=== PATIENT | male | born 1975 | race Caucasian/White ===

== ENCOUNTER 2023-12-08 11:55 | Observation (INO) | payer OTHER, SELFPAY ==
[2023-12-08] VITALS (7 sets, daily range): BP systolic 142–173; BP diastolic 83–94; PULSE 100–118; RESP 15–20; TEMP 36.6; O2SAT 95–100; BMI 28.7
--- NOTE | ~2023-12-08 | XR_ITS ---
XR foot RT min 3V Ordering provider: Neema Godinez MD History: . Diabetic foot . Comparison: None. FINDINGS: BONES: No acute fracture or dislocation. Slight sclerotic changes seen in the proximal navicular bone and medial cuneiform bone may be osteoarthritic. Follow-up advised. JOINT SPACES: Normal. No tarsal coalition. SOFT TISSUES: Normal. IMPRESSION: No acute osseous abnormality of the right foot. Slight sclerotic changes seen in the proximal navicular bone and medial cuneiform bone may be osteoar thritic. Follow-up advised. Reviewed, dictated and finalized at location A. IMPRESSION: No acute osseous abnormality of the right foot. Slight sclerotic changes seen in the proximal navicular bone and medial cuneifo rm bone may be osteoarthritic. Follow-up advised.
--- NOTE | ~2023-12-08 | XR_ITS ---
EXAMINATION: XR chest 1V portable DATE: 12/08/2023 15:04 INDICATION: Diabetic ketoacidosis TECHNIQUE: frontal view of the chest was obtained. COMPARISON: None FINDINGS: Mild elevation of the right hemidiaphragm. No airspace opacities, pulmonary edema, pleural effusion o r pneumothorax. The cardiomediastinal silhouette is normal. Visualized bones and soft tissues are unr emarkable. IMPRESSION: 1. Mild elevation the right hemidiaphragm. No other acute cardiopulmonary disease. Reviewed, dictated and finalized at location A. IMPRESSION: 1. Mild elevation the right hemidiaphragm. No other acute cardiopulmonary disea se.
--- NOTE | 2023-12-08 12:16 | ECG_ITS ---
Test Date: 2023-12-08 12:37:47 Measurements Intervals [place] Rate: 112 P: 45 ND: 176 QRS: -12 QRSD: 87 T: 40 QT: 323 QTc: 442 Interpretive Statements SINUS TACHYCARDIA POSSIBLE LEFT ATRIAL ENLARGEMENT [-0.1mV P-WAVE IN V1/V2] POSSIBLE ANTERIOR MYOCARDIAL INFARCTION , OF INDETERMINATE AGE [30 ms Q WAVE IN V3/V4, OR R < 0.2 mV IN V4] ABNORMAL ECG No previous ECG available for comparison Electronically Signed On 12-08-2023 16:08:52 CDT by Edward Lentz M.D.
[2023-12-08 12:56] LABS: Basophils Absolute Auto 0.1 K/mm3 (0.0-0.1); Basophils Percent Auto 0.8 % (0.2-1.2); Eosinophils Absolute Auto 0.1 K/mm3 (0-0.3); Eosinophils Percent Auto 1.2 % (0-4.4); Hemoglobin 14.6 g/dL (14.0-18.0); Immature Granulocyte Absolute 0.05 K/mm3 (0.00-0.031); Immature Granulocyte Percent A 0.5 % (0-0.5); Lymphocytes Percent Auto 15.1 % (18.3-44.2); Mean Corpuscular HGB Conc 34.8 g/dl (32-36); Mean Corpuscular Volume 80.5 fl (80-100); Mean Platelet Volume 8.9 fl (7.4-10.4); Monocytes Absolute Auto 0.8 K/mm3 (0.1-0.6); Monocytes Percent Auto 8.2 % (2.6-8.5); Neutrophils Absolute Auto 6.9 K/mm3 (1.3-6.7); Neutrophils Percent Auto 74.2 % (45.5-73.1); Platelet Count Result 215 k/mm3 (150-375); Red Blood Count 5.22 M/mm3 (4.6-6.20); Red Cell Distribution Width 12.4 % (11.5-14.5); White Blood Count 9.3 K/mm3 (4.5-10.0)
[2023-12-08 13:03] LABS: INR 0.9; Prothrombin Time 12.9 Seconds (11.1-14.7)
[2023-12-08 13:04] LABS: Partial Thromboplastin Time 26.4 Seconds (22.3-36.8)
[2023-12-08 13:08] LABS: Alanine Aminotransferase 28 U/L (6-50); Albumin Level 4.4 g/dL (3.5-5.1); Alkaline Phosphatase 123 U/L (38-126); Anion Gap 11 mmol/L (4-12); Aspartate Amino Transferase 24 U/L (17-59); Blood Urea Nitrogen 20 mg/dL (9-20); Calcium 9.4 mg/dL (8.4-10.2); Carbon Dioxide 27 mmol/L (22-30); Chloride 95 mmol/L (98-107); Estimated CRCL calculation 140 ml/min; Estimated Glomerular Filt Rate > 60; Glucose 528 mg/dL (65-110); Potassium 4.6 mmol/L (3.4-5.0); Sodium 133 mmol/L (137-145)
[2023-12-08 13:56] LABS: Alveolar/Arterial O2 Gradient 24.3 mmHg; Base Excess ABG 3.5 mEq/l (+/-2.0); Fractional Inspired Oxygen 21 %; HCO3 ABG 27.8 mEq/l (22.0-26.0); Oxygen Content ABG 19.9 %vol (16.0-22.0); Oxygen Saturation ABG 95.7 % (95.0-100.0); Oxyhemoglobin 94.7 % THb (90.0-100.0); PCO2 ABG 41.2 mmHg (35.0-45.0); PO2 ABG 76.1 mmHg (80.0-100.0); PO2 FiO2 Ratio Arterial Blood 3.62 %; Total Hemoglobin 14.9 g/dL (12.0-18.0)
[2023-12-08 13:57] LABS: Modified Allen's Test Pass; Site Drawn RIGHT RADIAL; pH ABG 7.447 (7.350-7.450)
[2023-12-08] MEDS: INSULIN HUMAN REGULAR (*BKC) 100 UNITS/ML 14 UNITS IV PUSH (14:19)
[2023-12-08] MEDS: SODIUM CHLORIDE 0.9% IV 1,000 ML 999 ML IV CONT ×2 (14:19→16:32)
[2023-12-08 14:54] LABS: Appearance Urine Clear (Clear); Bacteria Urine None Seen /hpf; Bilirubin Urine Negative (Negative); Blood Urine Non-Hemolyzed Trace (Negative); Color Urine Yellow (Yellow); Glucose Urine UA 3+ mg/dL (Negative); Ketones Urine 1+ mg/dL (Negative); Leukocyte Esterase Ur Negative LEU/UL (Negative); Nitrate Urine Negative (Negative); Non Pathogenic Casts 0-2; Protein Urine Trace mg/dL (Negative); Squamous Epithelial Cell Urine None Seen /hpf (Few); Urobilinogen Urine 0.2 mg/dL (<2.0); WBC Urine 0-5 /hpf (0-3); pH Urine 6.5 (5.0-9.0)
[2023-12-08 14:57] LABS: Add Urine Microscopic? YES; Specific Grav Ur 1.035 (1.001-1.035)
[2023-12-08 15:37] LABS: Magnesium 1.8 mg/dL (1.6-2.3); Phosphorus 4.2 mg/dL (2.5-4.5)
--- NOTE | 2023-12-08 15:38 | ED.GENADULT ---
HPI - General Adult General Chief complaint: Wound/Laceration Stated complaint: R foot wound between 1st 2 toes Time Seen by Provider: 12/08/23 13:09 Source: patient and family Mode of arrival: ambulatory Limitations: no limitations History of Present Illness HPI narrative: 48 years old white male came to the ED by private car complaining of pain at the right foot started 5 days ago. Patient accidentally hit the leg of a table 10 days ago causing laceration between the 1st and 2nd toe. History of diabetes, stopped diabetic medication 2 years ago for no specific reason. Patient does not take any medicine at home except ibuprofen as needed, does not smoke or drink. Related Data Allergies Allergy/AdvReac Type Severity Reaction Status Date / Time No Known Allergies Allergy Verified 12/08/23 11:56 Review of Systems Review of Systems: All systems reviewed & are unremarkable except as noted in HPI and below Exam Narrative: General appearance: Well-developed, well-nourished Skin: Normal color Head: Normocephalic, nontraumatic Eyes: Clear conjunctiva ENT: Oropharynx normal, ears normal, nose normal Neck: Supple, nontender Chest and respiratory: Airway patent, no respiratory distress, no accessory muscle use Heart: Regular rate/rhythm Abdomen: Soft, nontender, no organomegaly, quiet bowel sounds Vascular: Normal peripheral pulses, normal capillary refill. 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 CARLOS Date: 12/08/23 Time: 17:04 Vital Signs Vital signs: Vital Signs Temperature 36.6 C 12/08/23 12:08 Pulse Rate 118 H 12/08/23 12:08 Respiratory Rate 18 12/08/23 12:08 Pulse Oximetry 100 12/08/23 12:08 Oxygen Delivery Room Air 12/08/23 12:08 Temperature 36.6 C 12/08/23 12:08 Pulse Rate 109 H 12/08/23 14:12 Respiratory Rate 15 12/08/23 14:12 Blood Pressure 173/94 H 12/08/23 14:12 Pulse Oximetry 97 12/08/23 14:12 Oxygen Delivery Room Air 12/08/23 12:08 Medical Decision Making [facility] Narrative Medical decision making narrative: Patient presents with pain and swelling and laceration between the 1st and 2nd right toes started few days ago, patient is diabetic, does not take medication for the last 2 years for no specific reason. My concern that the patient have diabetic foot Labs, x-ray of the right foot, septic protocol, ordered. Differential Diagnosis Differential Diagnosis: Diabetic foot, cellulitis, sepsis Medical Records Medical records reviewed: Yes I reviewed the external patient's medical records. Vital Signs Vital Signs: Vital Signs Temperature 36.6 C 12/08/23 12:08 Pulse Rate 118 H 12/08/23 12:08 Respiratory Rate 18 12/08/23 12:08 Pulse Oximetry 100 12/08/23 12:08 Oxygen Delivery Room Air 12/08/23 12:08 Temperature 36.6 C 12/08/23 12:08 Pulse Rate 109 H 12/08/23 14:12 Respiratory Rate 15 12/08/23 14:12 Blood Pressure 173/94 H 12/08/23 14:12 Pulse Oximetry 97 12/08/23 14:12 Oxygen Delivery Room Air 12/08/23 12:08 Lab Data 12/08/23 12:49 12/08/23 12:49 Labs: Lab Results 12/08/23 12/08/23 12/08/23 Range/Units 12:49 14:19 15:19 WBC 9.3 (4.5-10.0) K/mm3 RBC 5.22 (4.6-6.20) M/mm3 Hgb 14.6 (14.0-18.0) g/dL Hct 42.0 (42.0-52.0) % MCV 80.5 (80-100) fl MCH 28.0 (26-34) pg MCHC 34.8 (32-36) g/dl RDW 12.4 (11.5-14.5) % Plt Count 215 (150-
[2023-12-08 15:58] LABS: Glucose Point of Care 377 mg/dl (65-105)
[2023-12-08 16:03] LABS: Beta-Hydroxybutyrate/Acetoacetate 0.83 mmol/L (0.02-0.27)
--- NOTE | 2023-12-08 16:57 | PM.IMHP ---
H&P: HPI History of Present Illness Date/Time: 12/08/23 16:57 Chief Complaint: Foot Wound Narrative: 48 y/o M presents here with hyperglycemia and a foot wound with PMH of DM2. The patient presents here from home for further evaluation of a wound to his right foot. First injured foot 10 days ago while he was walking he accidentally hit his foot into the leg of his bed while he was up in the middle of the night to use the restroom. Did not notice that there was an open wound to that area until 5 days ago. Wound initially appeared as a split between his 1st and 2nd toe. Once he noticed the wound he began icing the area, iodine solution on a cotton ball, Silvex cream, and soaking the wound in chlorhexidine/Epsom salt. Then developed erythema, pain, and drainage 2-3 days ago. Pain significantly worsened in the last 24 hrs. Currently reporting pain to affected area which he describes as sharp and deep. Pain is partially relieved with ibuprofen and worsens with ambulation. Patient has hx of DM2. Patient has been noncompliant with his DM medications for 2 years. States that he stopped taking his medications due to running out of the refills. Does not follow regularly with a PCP, last visit was 2 years ago. 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 Currently trying to get reestablished with a PCP. Initial VS at presentation: 97.8? F, HR 118, RR 18, 173/94, and 100% on RA. ED workup showed: No leukocytosis, no anemia, no acidosis, sodium 133, creatinine 0.6 and GFR >60, initial glucose 528, beta hydroxy 0.83, 1+ ketones in the urine. Review of Systems Review of Systems: All systems reviewed & are unremarkable except as noted in HPI and below COUNT INCLUDES THE [facility] Past Medical History Medical History Diabetes Social History Social History Smoking status: Never smoker Second hand tobacco smoke exposure: No Alcohol intake: never Substance use: never Substance use type: does not use Spiritual care concerns: No Meds Home Medications and Allergies Allergies Allergy/AdvReac Type Severity Reaction Status Date / Time No Known Allergies Allergy Verified 12/08/23 11:56 Vital Signs Vital Signs - 24 hr 12/08/23 12:08 12/08/23 14:12 Temperature 97.8 F Pulse Rate 118 H 109 H Respiratory Rate 18 15 Blood Pressure 173/94 H Pulse Oximetry 100 97 Oxygen Delivery Room Air Exam Const: General: comfortable and no acute distress Other: , male, nontoxic appearance HENMT: Face/Nose/Sinus: Normal nares present Mouth: Yes moist mucous membranes Eyes: General: appearance normal, both eyes and all related structures Sclera: sclerae normal Pupils: Equal, round and reactive pupils present EOM: EOMs intact bilaterally Resp: Effort & Inspection: normal respiratory effort Auscultation: clear to auscultation bilaterally Cardio: Rate: regular rate Rhythm: regular rhythm Other: S1-S2 present without murmur, rub, ectopy Skin: General skin exam: normal color and no rashes or lesions noted Wounds: wounds noted Other: gummy yellow/white wound with dry eschar center between 1st and 2nd toe with erythema to plantar and dorsal aspect to foot. Neuro: General: gait normal Speech: normal speech Motor exam (neuro): 5/5 motor strength present throughout Sensory Exam: normal sensation Other: A&O x4 Extrem: General: normal exam except as noted ( see skin exam) Psych: Mental Status: mental status grossly normal Affect: normal affect Other: good insight judgment, pleasant H&P: Results Labs Labs: Short CBC 12/08/23 Range/Units 12:49 WBC 9.3 (4.5-10.0) K/mm3 Hgb 14.6 (14.0-18.0) g/dL Hct 42.0 (42.0-52.0) % Plt Count 215 (150-375) k/mm3 [facility] 12/08/23 12:49 Sodium 133 L Potassium
[2023-12-08 17:14] LABS: Lactic Acid Reflex 1.1 mmol/L (0.7-2.0)
[2023-12-08 17:17] LABS: CRP 0.9 mg/dL (<1.0)
--- NOTE | 2023-12-08 17:23 | PM.CNGS ---
Assessment and Plan Assessment and plan (1) Hyperglycemia due to diabetes mellitus: Code(s): E11.65 - Type 2 diabetes mellitus with hyperglycemia Status: Acute Assessment and Plan: Admitted and diabetic treatment will be given per hospitalist service (2) Diabetic foot infection: Code(s): E11.628 - Type 2 diabetes mellitus with other skin complications; L08.9 - Local infection of the skin and subcutaneous tissue, unspecified Status: Acute Assessment and Plan: Mild cellulitis distal right forefoot adjacent to wound in 1st and 2nd toe web space. This wound has granulating periphery but a soft dry eschar in the center that is very adherent. Recommend IV antibiotics. I will also start collagenase dressing changes to the open wound in the 1st web space. Do not feel patient will need any debridement and will be fine to go home once diabetic management is established and improved. History of Present Illness Consult details Consult date: 12/08/23 Reason for consult: wound care Requesting physician: Neema Godinez MD Narrative: Patient is a 48-year-old man with diabetes who, 2 weeks ago, was going get to bed in the middle of the night and struck his great toe on the foot of his bed. He has sensation in his feet and this was of course painful. It improved but a low degree of pain persisted. Yesterday, this pain worsened significantly and was still painful today. He came to the emergency room due to this pain and also a wound in the webspace between the 1st and 2nd toes. He did not notice any fever or chills. He stopped medical treatment of his diabetes over 2 years ago as he seemed to be too busy caring for his father who was ill. In the emergency room today, his initial blood sugar was 528. He is admitted now for diabetic hyperglycemic management. I was asked to see him regarding the wound between the 1st and 2nd toes. Review of Systems Review of Systems: All systems reviewed & are unremarkable except as noted in HPI and below (HPI and those items noted below) Constitutional: Constitutional: Denies chills and Denies fever(s) Cardiovascular: Cardiovascular: Denies chest pain, Denies diaphoresis, Denies dyspnea and Denies paroxysmal nocturnal dyspnea Respiratory: Respiratory: Denies chest congestion, Denies cough and Denies dyspnea Integumentary/Breasts: Skin/Breast: Denies lesions and Denies rash PMFSH Past Medical History Medical History Diabetes Meds Home Medications and Allergies Allergies Allergy/AdvReac Type Severity Reaction Status Date / Time No Known Allergies Allergy Verified 12/08/23 11:56 Vital Signs Vital Signs - 24 hr 12/08/23 12:08 12/08/23 14:12 Temperature 36.6 C Pulse Rate 118 H 109 H Respiratory Rate 18 15 Blood Pressure 173/94 H Pulse Oximetry 100 97 Oxygen Delivery Room Air Exam Const: General: cooperative, comfortable, no acute distress, alert, awake and average body habitus Orientation/consciousness: patient oriented x3 HENMT: Head: normocephalic and atraumatic Mouth: Yes Normal oral and palatal mucosa present Eyes: Conjunctivae: conjunctivae normal Pupils: Equal, round and reactive pupils present EOM: EOMs intact bilaterally Neck: Neck: normal visual inspection, no lymphadenopathy and nontender Resp: Effort & Inspection: normal respiratory effort Auscultation: clear to auscultation bilaterally Cardio: Rate: regular rate Rhythm: regular rhythm Heart sounds: no gallops, no murmurs and no rubs GI: Inspection: non-distended GI Palp: Yes Soft to palpation, No Tenderness to palpation present (GI), No Hepatomegaly present and No Splenomegaly present Skin: General skin exam: other (Pale) Lesions: lesion noted (Multiple scars or brownish colored lesions both lower extremities) Rashes: no rashes Wounds: wounds noted (Web space right 1st and 2nd toes shows granulation tissue with eschar ) N
[2023-12-08 17:31] LABS: Glucose Point of Care 306 mg/dl (65-105)
[2023-12-08] MEDS: SODIUM CHLORIDE 0.9% IV 500 ML 999 ML IV CONT (18:16)
[2023-12-08] MEDS: VANCOMYCIN 1,500 MG/NS 500 ML 1,500 MG/500 ML BAG 250 MG IVPB (18:16)
[2023-12-08] MEDS: INSULIN HUMAN REGULAR (*BKC) 100 UNITS/ML IV PUSH (18:16)
[2023-12-08] MEDS: PIPERACILLN/TAZ 3.375GM/NS50ML 3.375 GM/50 ML BAG IVPB ×2 (18:16→23:49)
[2023-12-08] MEDS: COLLAGENASE OINT 30 GM TUBE 1 APPLIC TOPICAL (18:17)
[2023-12-08] MEDS: SODIUM CHLORIDE 0.9% IV 1,000 ML 250 ML IV CONT (18:17)
--- NOTE | 2023-12-08 19:27 | PC.NURSE ---
Hand off given to 3M/S Charge nurse
[2023-12-08 19:33] LABS: Glucose Point of Care 316 mg/dl (65-105)
--- NOTE | 2023-12-08 20:09 | ADMGEN ---
This patient, Huy Carr, was admitted to [facility] Surg Room 300-01. Patient/family oriented to hospital policies and general routines including ID bracelet, bed and alarms, visiting hours, pain management, procedures, bathroom and other care routines, personal items, smoking policy, room service/diet, and visiting hours. Information on how to activate the Rapid Response Team has been discussed. Patient/Family are encouraged to report perceived risks to care and to ask questions if they do not understand what they are told or what they should do.
[2023-12-08] MEDS: INSULIN ASPART (*BKC) 100 UNITS/ML SUB-Q (21:40)
[2023-12-08] MEDS: ACETAMINOPHEN 325 MG TABLET 650 MG PO (23:49)
[2023-12-08 23:57] LABS: Glucose Point of Care 309 mg/dl (65-105)
[2023-12-09] VITALS: PULSE 97
[2023-12-09 04:00] VITALS: PULSE 91
[2023-12-09] MEDS: VANCOMYCIN 1,500 MG/NS 500 ML 1,500 MG/500 ML BAG 250 MG IVPB (05:05)
[2023-12-09 05:53] LABS: Basophils Absolute Auto 0.1 K/mm3 (0.0-0.1); Basophils Percent Auto 0.6 % (0.2-1.2); Eosinophils Absolute Auto 0.1 K/mm3 (0-0.3); Eosinophils Percent Auto 1.3 % (0-4.4); Hematocrit 38.5 % (42.0-52.0); Hemoglobin 12.7 g/dL (14.0-18.0); Immature Granulocyte Absolute 0.06 K/mm3 (0.00-0.031); Immature Granulocyte Percent A 0.6 % (0-0.5); Lymphocytes Absolute Auto 1.96 K/mm3 (0.9-3.2); Lymphocytes Percent Auto 20.7 % (18.3-44.2); Mean Corpuscular Hemoglobin 27.9 pg (26-34); Mean Corpuscular Volume 84.4 fl (80-100); Mean Platelet Volume 9.1 fl (7.4-10.4); Monocytes Absolute Auto 0.9 K/mm3 (0.1-0.6); Monocytes Percent Auto 9.4 % (2.6-8.5); Neutrophils Absolute Auto 6.4 K/mm3 (1.3-6.7); Neutrophils Percent Auto 67.4 % (45.5-73.1); Platelet Count Result 202 k/mm3 (150-375); Red Blood Count 4.56 M/mm3 (4.6-6.20); Red Cell Distribution Width 12.5 % (11.5-14.5); White Blood Count 9.5 K/mm3 (4.5-10.0)
[2023-12-09 06:06] VITALS: BP 136/83; PULSE 100; RESP 18; TEMP 36.6; O2SAT 99
[2023-12-09 06:08] LABS: Alanine Aminotransferase 23 U/L (6-50); Albumin Level 3.8 g/dL (3.5-5.1); Alkaline Phosphatase 91 U/L (38-126); Anion Gap 8 mmol/L (4-12); Aspartate Amino Transferase 21 U/L (17-59); Blood Urea Nitrogen 14 mg/dL (9-20); Calcium 8.9 mg/dL (8.4-10.2); Carbon Dioxide 26 mmol/L (22-30); Chloride 102 mmol/L (98-107); Estimated CRCL calculation 140 ml/min; Estimated Glomerular Filt Rate > 60; Glucose 225 mg/dL (65-110); Magnesium 1.9 mg/dL (1.6-2.3); Phosphorus 3.5 mg/dL (2.5-4.5); Potassium 4.4 mmol/L (3.4-5.0); Sodium 136 mmol/L (137-145)
[2023-12-09 07:08] LABS: Hemoglobin A1C > 14.0 % (<5.7)
--- NOTE | 2023-12-09 07:26 | PM.IMPN ---
Progress Note: A&P Assessment and Plan (1) Diabetic foot infection: Code(s): E11.628 - Type 2 diabetes mellitus with other skin complications; L08.9 - Local infection of the skin and subcutaneous tissue, unspecified Status: Acute Assessment and Plan: - did not meet SIRS criteria (HR only), blood cultures were obtained, lactic 1.1 - XR R foot: No acute osseous abnormality of the right foot. Slight sclerotic changes seen in the proximal navicular bone and medial cuneiform bone may be osteoarthritic. Follow-up advised. - General Surgery consulted, provided the following recs: IV antibiotics Collagenase dressing to open wound in the 1st webspace No current indication for debridement - wound care consulted - wound culture - Change to Ceftriaxone and Vancomycin on 12/08, continue for now - start DM medications for glycemic control, will need education - trend labs - Was on metformin in the past (2) Hyperglycemia due to diabetes mellitus: Code(s): E11.65 - Type 2 diabetes mellitus with hyperglycemia Status: Acute Assessment and Plan: - pH 7.447, HC03 27.8, beta hydroxy 0.83, initial glucose 528, anion gap 11, and trace ketones per the UA. Did not meet diagnostic criteria for HHS or DKA. - hypoglycemia protocol - POC blood glucose ACHS - no home medication - correct regimen ordered - low dose TIDWM - A1C >14.0 - critical care educator consulted - ISS - Current glucose 225 (3) Hypertension: Qualifiers: Hypertension type: primary hypertension Qualified Code(s): I10 - Essential (primary) hypertension Code(s): I10 - Essential (primary) hypertension Status: Acute Assessment and Plan: Current BP is 136/83 BP 173/94 peaked Not on any antihypertensive at home Trend BP consider adding therapy if indicated Was on Lisinopril in the past Hold for now Time Spent With Patient Time: 48 minutes Time with patient: Greater than 35 minutes Subjective Date/time seen: 12/09/23 07:26 Interval history: 12/08/23 1657 48 y/o M presents here with hyperglycemia and a foot wound with PMH of DM2. The patient presents here from home for further evaluation of a wound to his right foot. First injured foot 10 days ago while he was walking he accidentally hit his foot into the leg of his bed while he was up in the middle of the night to use the restroom. Did not notice that there was an open wound to that area until 5 days ago. Wound initially appeared as a split between his 1st and 2nd toe. Once he noticed the wound he began icing the area, iodine solution on a cotton ball, Silvex cream, and soaking the wound in chlorhexidine/Epsom salt. Then developed erythema, pain, and drainage 2-3 days ago. Pain significantly worsened in the last 24 hrs. Currently reporting pain to affected area which he describes as sharp and deep. Pain is partially relieved with ibuprofen and worsens with ambulation. Patient has hx of DM2. Patient has been noncompliant with his DM medications for 2 years. States that he stopped taking his medications due to running out of the refills. Does not follow regularly with a PCP, last visit was 2 years ago. 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 Currently trying to get reestablished with a PCP. Initial VS at presentation: 97.8? F, HR 118, RR 18, 173/94, and 100% on RA. ED workup showed: No leukocytosis, no anemia, no acidosis, sodium 133, creatinine 0.6 and GFR >60, initial glucose 528, beta hydroxy 0.83, 1+ ketones in the urine. 12/09/23 1100 Patient is lying in bed. Patient states that he is feeling a lot better today. He denies any current chest pain, shortness a breath, nausea, vomiting, diarrhea constipation. Did talk to the patient about needing insulin most likely along with need to check his glucose. We also had a long conversation about the foods that he eats. H
--- NOTE | 2023-12-09 07:27 | PCWOUND ---
WOCN NOTE Received consult for diabetic ulcer to right foot from hospitalist. Dr. Rutherford was also consulted for same wound. Patient has been seen by surgeon and wound care orders have been placed. architect internship will not see patient at this time. Surgeon will consult wound care if needed in the future.
[2023-12-09 07:42] LABS: Glucose Point of Care 270 mg/dl (65-105)
[2023-12-09 08:00] VITALS: PULSE 97
[2023-12-09] MEDS: CEFEPIME 1 GM/NS 50 ML 1 GM/50 ML BAG IVPB ×2 (08:35→21:47)
[2023-12-09] MEDS: INSULIN ASPART (*BKC) 100 UNITS/ML SUB-Q ×3 (08:35→16:18)
--- NOTE | 2023-12-09 09:25 | PM.PNGS ---
Progress Note: A&P Assessment and Plan (1) Diabetic foot infection: Code(s): E11.628 - Type 2 diabetes mellitus with other skin complications; L08.9 - Local infection of the skin and subcutaneous tissue, unspecified Status: Acute Assessment and Plan: 1st web space wound looks good with eschar softening and distal erythema less intense. Pain is decreased as well. Continue IV antibiotics and collagenase dressing changes daily. (2) Hyperglycemia due to diabetes mellitus: Code(s): E11.65 - Type 2 diabetes mellitus with hyperglycemia Status: Acute Assessment and Plan: Blood sugars improving, patient feeling better. 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, wound eschar softening, periphery granula) Details: no edema; no tenderness, no unusual warmth, no ecchymosis and no crepitus Psych: Affect: normal affect Insight: Good insight present (Psych) Judgement: Good judgement present (Psych) Objective Data Vital Signs Vital Signs: Vital Signs - 24 hr 12/08/23 12:08 12/08/23 14:12 12/08/23 18:38 Temperature 36.6 C Pulse Rate 118 H 109 H 105 H Respiratory Rate 18 15 19 Blood Pressure 173/94 H 143/88 H Pulse Oximetry 100 97 97 Oxygen Delivery Room Air 12/08/23 19:13 12/08/23 19:58 12/08/23 20:23 Temperature 36.6 C Pulse Rate 100 100 104 H Respiratory Rate 20 20 16 Blood Pressure 142/83 H 163/90 H Pulse Oximetry 96 96 95 Oxygen Delivery Room Air 12/08/23 21:20 12/09/23 00:00 12/09/23 04:00 Temperature Pulse Rate 97 91 Respiratory Rate Blood Pressure Pulse Oximetry 95 Oxygen Delivery Room Air 12/09/23 06:06 Temperature 36.6 C Pulse Rate 100 Respiratory Rate 18 Blood Pressure 136/83 Pulse Oximetry 99 Oxygen Delivery Intake/Output Intake/Output: Intake & Output 12/06/23 12/07/23 12/08/23 12/09/23 23:59 23:59 23:59 23:59 Intake Total 3050 1280 Balance 3050 1280 Meds/Results Medications: Active Medications Generic Name Dose Route Start Last Admin Trade Name Freq PRN Reason Stop Dose Admin Acetaminophen 650 mg 12/08/23 16:53 12/08/23 23:49 Acetaminophen 325 Mg Tablet PO 650 mg Q4H PRN Administration Mild Pain (1-3) or Fever Collagenase 1 applic 12/09/23 09:00 12/08/23 18:17 Collagenase Oint 30 Gm Tube TOPICAL 1 applic QAM ALIA Administration Dextrose 12.5 gm 12/08/23 17:12 Dextrose 50% 25 Gm/50 Ml Syringe IV PUSH PRN PRN Hypoglycemia Protocol Glucagon 1 mg 12/08/23 17:12 Glucagon For Inj 1 Mg Vial IM PRN PRN Hypoglycemia Protocol Glucose 15 gm 12/08/23 17:12 Glucose Oral Gel 15 Gm Of Glucse In 37.5 Gm Tube PO PRN PRN Hypoglycemia Protocol Vancomycin HCl 1,500 mg in 500 mls @ 250 mls/hr 12/08/23 17:00 12/09/23 05:05 Vancomycin 1,500 Mg/Ns 500 Ml IVPB 250 mls/hr Q12H ALIA Administration Dextrose 1,000 mls @ 100 mls/hr 12/08/23 17:12 Dextrose 5% 1,000 Ml IVPB PRN PRN Hypoglycemia Protocol Cefepime HCl 1 gm in 50 mls @ 100 mls/hr 12/09/23 09:00 12/09/23 08:35 Maxipime 1 Gm/Ns 50 Ml IVPB 100 mls/hr Q12H ALIA Administration Insulin Aspart 2 - 5 units 12/09/23 08:00 12/09/23 08:35 Insulin Aspart (*Bkc) 100 Units/Ml SUB-Q 3 units TIDWM ALIA Administration Protocol Radiology Results: ITS Impressions Chest X-Ray 12/08/23 15:06 IMPRESSION: 1. Mild elevation the right hemidiaphr
[2023-12-09 11:27] LABS: Glucose Point of Care 275 mg/dl (65-105)
[2023-12-09 13:40] VITALS: BMI 28.7
[2023-12-09 14:00] VITALS: BP 124/72; PULSE 106; RESP 16; TEMP 36.3; O2SAT 97
[2023-12-09] MEDS: VANCOMYCIN 1,500 MG/NS 500 ML 1,500 MG/500 ML BAG 125 MG IVPB (16:15)
[2023-12-09 16:20] LABS: Glucose Point of Care 264 mg/dl (65-105)
[2023-12-09 20:49] LABS: Glucose Point of Care 296 mg/dl (65-105)
[2023-12-09 21:19] VITALS: BP 147/91; PULSE 100; RESP 16; TEMP 36.1; O2SAT 98
[2023-12-10 04:53] LABS: Estimated CRCL calculation 140 ml/min; Estimated Glomerular Filt Rate > 60
[2023-12-10 05:02] LABS: Vancomycin Trough 9.3 ug/mL (10.0-20.0)
[2023-12-10] MEDS: VANCOMYCIN 1,750 MG/NS 500 ML 1,750 MG/500 ML BAG 250 MG IVPB (06:28)
[2023-12-10 06:34] VITALS: BP 149/86; PULSE 95; RESP 16; TEMP 36.4; O2SAT 98
[2023-12-10 07:40] LABS: Glucose Point of Care 252 mg/dl (65-105)
--- NOTE | 2023-12-10 08:23 | PM.IMPN ---
Progress Note: A&P Assessment and Plan (1) Diabetic foot infection: Code(s): E11.628 - Type 2 diabetes mellitus with other skin complications; L08.9 - Local infection of the skin and subcutaneous tissue, unspecified Status: Acute Assessment and Plan: Day 3 of vanc and cefepime -pt afebrile and WBC has been WNL -Wound cx wwith gram + cocci in clusters and WBC -Blood cx NGTD - did not meet SIRS criteria (HR only), blood cultures were obtained, lactic 1.1 - XR R foot: No acute osseous abnormality of the right foot. - General Surgery consulted and following - start DM medications for glycemic control, will need education - trend labs - Was on metformin in the past (2) Hyperglycemia due to diabetes mellitus: Code(s): E11.65 - Type 2 diabetes mellitus with hyperglycemia Status: Acute Assessment and Plan: Pt has A1c >14 and seen by the DM educator -Will start scheduled insulin with SSI as well as low dose lantus. Suspect he will need more lantus inpt and after discharge and will need close f/u with endocrinology and pcp for adjustments -would recommend metformin at d/c as well -no signs of DKA -Starting with 5u lantus and 3u novolog TID + SSI. (3) Hypertension: Qualifiers: Hypertension type: primary hypertension Qualified Code(s): I10 - Essential (primary) hypertension Code(s): I10 - Essential (primary) hypertension Status: Acute Assessment and Plan: Current bp 149/86 -will start low dose amlodipine -monitor trends Plan Consider lovenox ppx but will see if sx is okay with this Time Spent With Patient Time with patient: 25 - 35 minutes Subjective Date/time seen: 12/10/23 08:23 Interval history: Pt is a Review of Systems Review of Systems: All systems reviewed & are unremarkable except as noted in HPI and below Exam Narrative: General: Well developed well nourished patient in NAD HEENT: normocephalic Neck: supple Neuro: Alert and oriented x CV:RRR Resp:CTA Abd: Soft, non distended. No pain to palpation. Positive bowel sounds Extremities: No swelling, erythema, or pain to palpation. Objective Data Vital Signs Vital Signs: Vital Signs - 24 hr 12/09/23 10:03 12/09/23 14:00 12/09/23 21:19 Temperature 97.4 F L 97 F L Pulse Rate 106 H 100 Respiratory Rate 16 16 Blood Pressure 124/72 147/91 H Pulse Oximetry 97 98 Oxygen Delivery Room Air 12/09/23 20:00 12/10/23 06:34 Temperature 97.5 F L Pulse Rate 95 Respiratory Rate 16 Blood Pressure 149/86 H Pulse Oximetry 98 Oxygen Delivery Room Air Intake/Output Intake/Output: Intake & Output 12/07/23 12/08/23 12/09/23 12/10/23 23:59 23:59 23:59 23:59 Intake Total 3049 2049 Balance 3049 2049 Meds/Results Medications: Active Medications Generic Name Dose Route Start Last Admin Trade Name Freq PRN Reason Stop Dose Admin Acetaminophen 650 mg 12/08/23 16:53 12/08/23 23:49 Acetaminophen 325 Mg Tablet PO 650 mg Q4H PRN Administration Mild Pain (1-3) or Fever Collagenase 1 applic 12/09/23 09:00 12/08/23 18:17 Collagenase Oint 30 Gm Tube TOPICAL 1 applic QAM ALIA Administration Dextrose 12.5 gm 12/08/23 17:12 Dextrose 50% 25 Gm/50 Ml Syringe IV PUSH PRN PRN Hypoglycemia Protocol Glucagon 1 mg 12/08/23 17:12 Glucagon For Inj 1 Mg Vial IM PRN PRN Hypoglycemia Protocol Glucose 15 gm 12/08/23 17:12 Glucose Oral Gel 15 Gm Of Glucse In 37.5 Gm Tube PO PRN PRN Hypoglycemia Protocol Dextrose 1,000 mls @ 100 mls/hr 12/08/23 17:12 Dextrose 5% 1,000 Ml IVPB PRN PRN Hypoglycemia Protocol Cefepime HCl 1 gm in 50 mls @ 100 mls/hr 12/09/23 09:00 12/09/23 21:47 Maxipime 1 Gm/Ns 50 Ml IVPB 100 mls/hr Q12H ALIA Administration Vancomycin HCl 1,750 mg in 500 mls @ 250 mls/hr 12/10/23 06:00 12/10/23 06:28 Vancomycin
[2023-12-10] MEDS: INSULIN ASPART (*BKC) 100 UNITS/ML SUB-Q ×3 (08:26→11:55)
[2023-12-10] MEDS: CEFEPIME 1 GM/NS 50 ML 1 GM/50 ML BAG IVPB (08:27)
[2023-12-10] MEDS: COLLAGENASE OINT 30 GM TUBE 1 APPLIC TOPICAL (08:27)
[2023-12-10 11:51] LABS: Glucose Point of Care 325 mg/dl (65-105)
[2023-12-10 13:39] VITALS: BP 127/75; PULSE 102; RESP 16; TEMP 36.4; O2SAT 98
[2023-12-10 14:37] LABS: Hemoglobin 12.8 g/dL (14.0-18.0)
--- NOTE | 2023-12-10 14:43 | PM.PNGS ---
Progress Note: A&P Assessment and Plan (1) Diabetic foot infection: Code(s): E11.628 - Type 2 diabetes mellitus with other skin complications; L08.9 - Local infection of the skin and subcutaneous tissue, unspecified Status: Acute Assessment and Plan: Much improved. No pain. Wound is healing with eschar softening. Distal forefoot erythema improving to where now I feel that it is more healing erythema than infection. I spoke with the hospitalist, Francine, and patient can be discharged from my perspective. He will need to continue Santyl and gauze dressings, wrapping foot with Satish wrap. I discussed this with nursing and his . He can wear the walking shoe or loose fitting shoes with clean socks to walk at home but keep foot elevated when sitting. He will follow up with me in 10-14 days. Subjective Subjective Date/Time Seen: 12/10/23 14:43 Patient reports: no new complaints, feels better, pain is less (No pain) and afebrile Review of Systems Review of Systems: All systems reviewed & are unremarkable except as noted in HPI and below (HPI) Exam Const: General: cooperative, comfortable, alert and awake Orientation/consciousness: No confusion Extrem: Right lower extremity: foot (wound continues to improve, eschar softening, forefoot erythema improved) Details: no unusual warmth, no edema and no crepitus Objective Data Vital Signs Vital Signs: Vital Signs - 24 hr 12/09/23 21:19 12/09/23 20:00 12/10/23 06:34 Temperature 36.1 C L 36.4 C L Pulse Rate 100 95 Respiratory Rate 16 16 Blood Pressure 147/91 H 149/86 H Pulse Oximetry 98 98 Oxygen Delivery Room Air 12/10/23 08:00 12/10/23 13:39 Temperature 36.4 C L Pulse Rate 102 H Respiratory Rate 16 Blood Pressure 127/75 Pulse Oximetry 98 Oxygen Delivery Room Air Intake/Output Intake/Output: Intake & Output 12/07/23 12/08/23 12/09/23 12/10/23 23:59 23:59 23:59 23:59 Intake Total 3050 2100 1430 Balance 3050 2100 1430 Meds/Results Medications: Active Medications Generic Name Dose Route Start Last Admin Trade Name Freq PRN Reason Stop Dose Admin Acetaminophen 650 mg 12/08/23 16:53 12/08/23 23:49 Acetaminophen 325 Mg Tablet PO 650 mg Q4H PRN Administration Mild Pain (1-3) or Fever Collagenase 1 applic 12/09/23 09:00 12/10/23 08:27 Collagenase Oint 30 Gm Tube TOPICAL 1 applic QAM ALIA Administration Dextrose 12.5 gm 12/08/23 17:12 Dextrose 50% 25 Gm/50 Ml Syringe IV PUSH PRN PRN Hypoglycemia Protocol Glucagon 1 mg 12/08/23 17:12 Glucagon For Inj 1 Mg Vial IM PRN PRN Hypoglycemia Protocol Glucose 15 gm 12/08/23 17:12 Glucose Oral Gel 15 Gm Of Glucse In 37.5 Gm Tube PO PRN PRN Hypoglycemia Protocol Dextrose 1,000 mls @ 100 mls/hr 12/08/23 17:12 Dextrose 5% 1,000 Ml IVPB PRN PRN Hypoglycemia Protocol Cefepime HCl 1 gm in 50 mls @ 100 mls/hr 12/09/23 09:00 12/10/23 08:57 Maxipime 1 Gm/Ns 50 Ml IVPB Infused Q12H ALIA Infusion Vancomycin HCl 1,750 mg in 500 mls @ 250 mls/hr 12/10/23 06:00 12/10/23 08:28 Vancomycin 1,750 Mg/Ns 500 Ml IVPB Infused Q12H ALIA Infusion Insulin Aspart 2 - 5 units 12/09/23 08:00 12/10/23 11:55 Insulin Aspart (*Bkc) 100 Units/Ml SUB-Q 4 units TIDWM [facility] Administration Protocol Insulin Aspart 3 units 12/10/23 12:00 12/10/23 11:55 Insulin Aspart (*Bkc) 100 Units/Ml SUB-Q 3 units TIDWM [facility] Administration Insulin Glargine 5 units 12/10/23 21:00 Insulin Glargine (*Bkc) 100 Units/Ml SUB-Q HS [facility] Radiology Results: ITS Impressions Chest X-Ray 12/08/23 15:06 IMPRESSION: 1. Mild elevation the right hemidiaphragm. No other acute cardiopulmonary disease. Foot X-Ray 12/08/23 16:04 IMPRESSION: No acute osseous abnormality of the right foot. Slight sclerotic changes seen in the proximal navicular bone and medial
[2023-12-10 14:46] LABS: Anion Gap 7 mmol/L (4-12); Blood Urea Nitrogen 15 mg/dL (9-20); Calcium 9.2 mg/dL (8.4-10.2); Carbon Dioxide 26 mmol/L (22-30); Chloride 102 mmol/L (98-107); Estimated CRCL calculation 122 ml/min; Estimated Glomerular Filt Rate > 60; Glucose 269 mg/dL (65-110); Potassium 4.9 mmol/L (3.4-5.0); Sodium 135 mmol/L (137-145)
--- NOTE | 2023-12-10 14:48 | PM.DS ---
DS: Admitting Diagnosis Discharge Date 12/10/23 Admitting Diagnosis Foot wound DS: Discharge Diagnosis Discharge Diagnosis (1) Diabetic foot infection: Code(s): E11.628 - Type 2 diabetes mellitus with other skin complications; L08.9 - Local infection of the skin and subcutaneous tissue, unspecified Status: Acute Assessment and Plan: Patient had 2 days of vanc and cefepime, patient is doing well and he will be switched to Keflex -pt afebrile and WBC has been WNL -Wound cx wwith gram + cocci in clusters and WBC -Blood cx NGTD - did not meet SIRS criteria (HR only), blood cultures were obtained, lactic 1.1 - XR R foot: No acute osseous abnormality of the right foot. - General Surgery consulted and following - start DM medications for glycemic control, will need education - trend labs - Was on metformin in the past (2) Hyperglycemia due to diabetes mellitus: Code(s): E11.65 - Type 2 diabetes mellitus with hyperglycemia Status: Acute Assessment and Plan: Pt has A1c >14 and seen by the DM educator -Will start scheduled insulin with SSI as well as low dose lantus. Suspect he will need more after discharge and will need close f/u with endocrinology and pcp for adjustments. He sees Branden Stevens and will call his office on Tuesday -discharged on metformin at discharge as well, educated patient on diarrhea -no signs of DKA on repeat labs -patient saw the health educator during admission -we had a long discussion about sliding scale insulin, scheduled insulin and long-acting. We also discussed the signs and symptoms of low blood sugar and what to do (3) Hypertension: Qualifiers: Hypertension type: primary hypertension Qualified Code(s): I10 - Essential (primary) hypertension Code(s): I10 - Essential (primary) hypertension Status: Acute Assessment and Plan: Will start low-dose amlodipine as patient states he is chronically elevated at home DS: Summary Hospital Course Hospital Course: Patient is a 48-year-old male who presented emergency room for a wound on his right foot. Patient states he has a history of diabetes but stopped taking his medications 2 years ago. His A1c on admission was greater than 14. He was admitted to the hospital and started on antibiotic therapy as detailed above. Foot x-ray showed no acute osseous abnormality and surgery was consulted. Santal ointment and dressing changes were started along with his antibiotics. He did not require any surgery. His wound culture is growing group B strep and patient was transition to Keflex at discharge and is going to follow up with Dr. Rutherford in 1 week. As for his diabetes, he was seen by the health educator and I spoke with him and his extensively about this. 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 We discussed scheduled insulin, sliding scale insulin, and long-acting insulin as he will require all of these. I will also start him on metformin. He will need close follow-up with his primary care provider as I suspect these will need to be adjusted further. He is going to bring his glucose logs to his primary. The day of discharge his last glucose was 269, which was an improvement from 528 on admission. He had no anion gap at discharge. We had a long discussion about hypoglycemia symptoms and how to treat this. The patient was sent home with a glucometer and Diabetes Education pamphlet. Overall, he says he is feeling much better. Day of discharge the wound was looking better and he denied nausea, vomiting, fevers, chills, diarrhea, constipation, chest pain or shortness of breath. He has high blood pressure which is untreated and is agreeable to amlodipine and he will follow up with his primary care for adjustments for this. We discussed the worrisome signs and symptoms to come back to emergency room for and he was discharged in stable condition. Plan discussed with surgeon
== END 2023-12-10 15:25 | disposition home or self-care (01) ==
LOC: ANHED 17:06 → ANH3MEDSUR 19:15
PROVIDERS: Student in an Organized Health Care Education/Training Program; Admitting Provider Hospitalist; Emergency Provider Emergency Medicine; PCP Nurse Practitioner; Visit Provider Physician Assistant
DX: E11.628 Type 2 diabetes mellitus with other skin complications (principal); L08.9 Local infection of the skin and subcutaneous tissue, unspecified; S91.311A Laceration without foreign body, right foot, initial encounter; W22.8XXA Striking against or struck by other objects, initial encounter; E11.65 Type 2 diabetes mellitus with hyperglycemia; I10 Essential (primary) hypertension; Z79.4 Long term (current) use of insulin; Z79.84 Long term (current) use of oral hypoglycemic drugs
CPT/HCPCS: 36415; 36600; 71045; 73630; 80048; 80053; 80202; 81001; 82010; 82565; 82805; 82948; 83036; 83605; 83735; 84100; 85014; 85018; 85025; 85610; 85730; 86140; 87040; 87070; 87077; 87205; 93005; 96361; 96365; 96366; 96367; 96375; 96376; 99285; A9270; G0378; G0379; J0692; J1815; J2543; J3370; J7030; J7040

== ENCOUNTER 2024-01-01 13:55 | Emergency (ER) | payer OTHER, SELFPAY ==
--- NOTE | ~2024-01-01 | CT_ITS ---
Non-contrast Head CT History: Trauma Technique: Axial non-contrast imaging of the brain was performed. Dose reduction technique was used on this scan by utilizing automated exposure control and iterative reconstruction technique. The dose -length product (DLP) was 681.00 mGy-cm. Findings: There is no evidence of intracranial hemorrhage, mass lesion, or acute infarct. Brain par enchyma appears normal. The ventricles and subarachnoid spaces are normal in size. The calvarium ap pears normal. The visualized paranasal sinuses and mastoid air cells are clear. There is soft tissue swelling/hematoma in the left frontal scalp. Impression: No intracranial abnormality seen. Soft tissue swelling/hematoma at the left frontal scalp, extending to the left periorbital region. Reviewed, dictated and finalized at [facility] and the [facility]. Impression: No intracranial abnormality seen. Soft tissue swelling/hematoma at the left frontal scalp, extending to the left periorbital region.
[2024-01-01 13:48] VITALS: PULSE 129; RESP 20; TEMP 36.6; O2SAT 90
--- NOTE | 2024-01-01 13:59 | ECG_ITS ---
Test Date: 2024-01-01 14:01:42 Measurements Intervals [place] Rate: 166 P: 0 MA: 0 QRS: -52 QRSD: 126 T: 72 QT: 233 QTc: 387 Interpretive Statements SUPRAVENTRICULAR TACHYCARDIA INTRAVENTRICULAR CONDUCTION DELAY LEFT ANTERIOR FASCICULAR BLOCK ST ELEVATION IN HIGH LATERAL LEADS, CONSIDER LATERAL INJURY WITH RECIPROCAL ST DEPRESSION IN INFERIOR LEADS ABNORMAL ECG Compared to ECG 12/08/2023 12:37:47 SUPRAVENTRICULAR TACHYCARDIA NOW PRESENT ACUTE INJURY NOW PRESENT Electronically Signed On 01-02-2024 08:17:02 CDT by Wilfredo Ann D.O.
--- NOTE | 2024-01-01 14:11 | ED.CPR ---
HPI - CPR General Chief Complaint: Cardiac Arrest/CPR Stated Complaint: cardiac arrest Time Seen by Provider: 01/01/24 14:11 Source: family and EMS Mode of arrival: EMS Limitations: clinical condition History of Present Illness HPI narrative: 48 YEARS OLD WHITE MALE CAME TO THE EMERGENCY ROOM BY AMBULANCE UNRESPONSIVE, CARDIAC ARREST, CPR IN PROGRESS. EMT IS TELLING ME THAT PATIENT WAS WALKING INSIDE HIS HOME, SOMEHOW HIT THE FALL AND FELL TO THE FLOOR, EMT ON ARRIVAL FOUND THE PATIENT WAS LITTLE BIT SLOW SLIGHTLY UNRESPONSIVE BEEN CODED. INITIAL MONITOR SHOWING IDIOVENTRICULAR RHYTHM, THEN PE A. PATIENT ARRIVED TO THE ED WITHIN 15-20 MINUTES AFTER RESUSCITATION. ON ARRIVAL I WAS ABLE TO PALPATE A PULSE AT THE RIGHT GROIN AREA, CPR STOPPED, LMA CHANGES TO 7.5 INTRA TRACHEAL INTUBATION, FEW MINUTES LATER PATIENT CODED AGAIN CPR CONTINUED FOR ROUGHLY 45 MINUTES, PULSE WAS PALPATED AGAIN, EKG SHOWED STEMI, MILL ATTENDANT WAS NOTIFIED,. PATIENT BEEN PULSELESS, CPR, BACK AND FORTH FOR AT LEAST 4 TIMES SINCE ARRIVAL TO THE EMERGENCY ROOM UP TO 2 HOURS. UNTIL CARDIOLOGY ON ARRIVAL. PATIENT WENT CARDIAC CATHETERIZATION AND WAS PRONOUNCED . Related Data Allergies Allergy/AdvReac Type Severity Reaction Status Date / Time No Known Allergies Allergy Verified 12/26/23 09:55 Review of Systems Review of Systems: ROS unobtainable: Yes unobtainable due to medical condition PMFSH Past Medical History Medical History Diabetes Social History Social History Smoking status: Never smoker Second hand tobacco smoke exposure: No Alcohol intake: never Substance use: never Substance use type: does not use Spiritual care concerns: No Exam Narrative: GENERAL APPEARANCE: WELL-DEVELOPED, WELL-NOURISHED SKIN: PALE HEAD: NORMOCEPHALIC, LEFT FOREHEAD, LEFT FACE SWELLING, HEMATOMA EYES: CLEAR CONJUNCTIVA ENT: OROPHARYNX NORMAL, EARS NORMAL, NOSE NORMAL NECK: C-COLLAR ON CHEST AND RESPIRATORY: NO SPONTANEOUS BREATHING, NO BREATH SOUND WITHOUT RESUSCITATE HEART: VARIES BETWEEN BRADYCARDIA AND TACHYCARDIA, V-TACH AND VFIB ABDOMEN: SOFT, , NO ORGANOMEGALY, QUIET BOWEL SOUNDS VASCULAR: ICE COLD HANDS AND FEET. MUSCULOSKELETAL: UNRESPONSIVE NEUROLOGIC: UNRESPONSIVE, PULSELESS Course Consultations Consultation #1: DR ALICIA Date: 01/01/24 Consultation #2: DR GONZALES AGREED WITH THE CERTIFICATE Date: 01/01/24 Time: 16:41 Vital Signs Vital signs: Vital Signs Temperature 36.6 C 01/01/24 13:48 Pulse Rate 129 H 01/01/24 13:48 Respiratory Rate 20 01/01/24 13:48 Pulse Oximetry 90 01/01/24 13:48 Oxygen Delivery Mechanical Ventilation 01/01/24 13:48 Temperature 36.6 C 01/01/24 13:48 Pulse Rate 129 H 01/01/24 13:48 Respiratory Rate 20 01/01/24 13:48 Pulse Oximetry 90 01/01/24 13:48 Oxygen Delivery Mechanical Ventilation 01/01/24 13:48 Procedures Intubation Intubation #1: Intubation Date: 01/01/24 Intubation Time: 17:59 Time out performed: Yes (3 MINUTES) sedative: none Laryngoscope: fiber optic video scope Tube Size (cm): 7.5 Method of Intubation: orotracheal Number of Attempts: 1 Tube Secured Depth (cm): 23 Tube Secured Location: lips Tube Placement Confirmation: visualized tube passing through cords and equal breath sounds bilaterally Patient Tolerated Procedure: no complications Intubation Complications: none MDM - Cardiac Arrest/CPR MDM Narrative Medical decision making narrative: DIFFERENTIAL DIAGNOSIS INCL
--- NOTE | 2024-01-01 15:54 | PM.CNCAR ---
Assessment and Plan Assessment and plan (1) Cardiac arrest: Code(s): I46.9 - Cardiac arrest, cause unspecified Status: Acute Assessment and Plan: please refer to the HPI for detailed management and explanation about what happened total time spent on this case was 120 minutes including the time I spent talking to the emergency room physician, reviewing EKGs, reviewing history talking to the girlfriend History of Present Illness History of Present Illness Consult date/time: Date of service: 01/01/24 15:54 Reason For Visit: cardiac arrest Narrative: this is 48-year-old patient with history of diabetes, hypertension and wound on the lower extremities who apparently suddenly had and syncopal episode at home and fell and hit his head. Upon arrival of EMS they found to be an idioventricular rhythm and then PA arrest. CPR was done for 15 minutes until he came to the emergency room. he again was initiated CPR for. Initial EKGs shows heart [id number] questionable ST elevation lead aVL. CPR was and brief nondenominational of pulse and patient coded again with prolonged CPR. Apparently he had significant fall on his head and pulse restored he was taken urgently for CT scan head prior to taking to the mill labor supervisor he coded again with PEA arrest CT scan and was brought into emergency and CPR initiated. he had prolonged episodes of CPR with nondenominational of pulse very briefly and then coding again. Apparently the ER physician spoke to his girlfriend who was very emotional and wanted CPR to be continued. When I arrived to the emergency room the patient just had nondenominational of pulses . repeat EKG did not show clear STEMI . I I went and spoke to his girlfriend who is very emotionally given that the patient is the only person who provides social support to his girlfriend and I explained to her that I will take him to the mill labor supervisor but if the patient codes again then I will stop and we will not perform CPR because it is medically futile given the fact that he cannot sustain circulation or pulse , and she agreed. When we were about to wheel him out of his room in the emergency room, he lost his pulse again and at that time we pronounced patient at 3:36 p.m. his girl friend was present at the bedside. this is very emotional situation and I tried to provide emotional support as much as I can. I asked the emergency room payroll secretary to call the pen ruler operator. I talked to jose( girl friend) about calling her brother or patient's sister to come in but she insisted not to call them. i know jose from before as she works at [employer]. Review of Systems Review of Systems: review of system could not be obtained because patient was coding and unconscious PMFSH Past Medical History Medical History Diabetes Social History Social History Smoking status: Never smoker Second hand tobacco smoke exposure: No Alcohol intake: never Substance use: never Substance use type: does not use Spiritual care concerns: No Meds Home Medications and Allergies Home Medications Medication Instructions Recorded Confirmed Type amlodipine 5 mg tablet 5 mg PO DAILY #30 tabs 12/10/23 12/26/23 Rx blood sugar diagnostic (OneTouch #100 ea 12/10/23 12/26/23 Rx Verio test strips) collagenase clostridium histo. 250 1 applic topical DAILY #30 grams 12/10/23 12/26/23 Rx unit/gram topical ointment (Santyl) insulin aspart U-100 100 unit/mL 1 sliding scale dose subcut 12/10/23 12/26/23 Rx (3 mL) subcutaneous pen (Novolog USEASDIRECTD #15 mL FlexPen U-100 Insulin aspart) pen needle, diabetic 29 gauge x #100 ea 12/10/23 12/26/23 Rx 1/2 (Ultra-Thin II Insulin Pen [place]) blood-glucose meter,continuous #1 ea 12/15/23 12/26/23 Rx (Dexcom G7 [employer]) blood-glucose sensor (Dexcom G7 #2 12/15/23 12/26/23 R
--- NOTE | 2024-01-01 15:55 | PC.NURSE ---
Connie at [facility] to come out and assess patient due to patient age and circumstance.
--- NOTE | 2024-01-01 16:04 | PC.NURSE ---
Savi at [facility] contacted. They are to reivew his chart and call us back. Ref# [id number]
--- NOTE | 2024-01-01 16:32 | PC.NURSE ---
MTS called back to notify us that patient was not a candidate for tissue donation.
--- NOTE | 2024-01-01 18:06 | PC.NURSE ---
1639 Dr. Haynes's office call to notified of pt .
--- NOTE | 2024-01-01 18:37 | PC.NURSE ---
1345 Pt to ed unresponsive, PEA CPR in progress 1400 STEMI activated 1414 Pt no Pulse CPR restarted, EPI given 1416 CPR cont. PEA, EPI 1419 CPR cont. PEA, EPI 1422 CPR cont, PEA EPi given 1427 pt in V-tac shock delivered with 200J 1428 PEA CPR cont., EPI given 1429 Pt in V-tach shock delivered with 200J 1431 shocked with 200j 1431 CPR cont, PEA Epi given 1433 150mg of Amiodarone given 1334 CPR, PEA and Epi given 1437 CPR, PEA, EPI 1440 CPR, PEA, EPI 1443 CPR, PEA, EPI 1446 P back CPR stopped [address] No pulse CPR restarted , pt in PEA 1504 CPR cont , PEA, EPI given 1507 CPR, PEA, EPI 1510 P 89 CPR stopped 1516 CPR Restarted , PEA, 1517 CPR, PEA, EPI 1520 CPR, PEA, EPI 1523 P back [address] Vale here to take pt to labor custodian 1533 Pt HR decrease 1536 Pt
--- NOTE | 2024-01-01 19:13 | PC.NURSE ---
Family wants to use [facility] home located at [address] [place] [address]. made aware. Body will be taken to the morg.
== END 2024-01-01 19:37 | disposition expired ==
PROVIDERS: Emergency Provider Emergency Medicine; PCP Nurse Practitioner
DX: I21.3 ST elevation (STEMI) myocardial infarction of unspecified site (principal); I46.2 Cardiac arrest due to underlying cardiac condition; E11.9 Type 2 diabetes mellitus without complications; I10 Essential (primary) hypertension; Z79.4 Long term (current) use of insulin
CPT/HCPCS: 31500; 70450; 92950; 93005; 99291; J0171; J0282; J1644; J7040